=== PATIENT | female | born 1965 | race Caucasian/White ===

== ENCOUNTER 2016-12-17 09:05 | Inpatient (IN) | payer SELFPAY ==
[~2016-12-17] VITALS: Ht 157.5 cm; Wt 59.9 kg
[2016-12-17] VITALS (8 sets, daily range): BP systolic 103–155; BP diastolic 59–91; PULSE 80–98; RESP 16–22; TEMP 98.2–98.7; O2SAT 96–98
[~2016-12-17 09:05] MED LIST: LEVO50TA4 PO; LEVO75TA3 PO; PERC5TAB12 PO
--- NOTE | 2016-12-17 09:41 | PD ---
HPI Chief Complaint: Chest Pain Time Seen by Provider: 09:21 Travel History International Travel<30 days: No Contact w/Intl Traveler<30days: No Traveled to known affect area: No History of Present Illness HPI 51-year-old female complains of chest pain. Patient states that she had lateral chest wall pain and substernal chest pain for months. Patient has not seen any physician for that. Patient has history hypothyroidism and on levothyroxine. Patient denies any history hypertension, diabetes, hyperlipidemia. Patient is a nonsmoker. Patient denies family history of heart disease. Patient states the pain is aching pain bilaterally chest wall and substernal. Patient denies any pain radiation. Patient denies palpitation nausea or diaphoresis. Patient denies a coughing congestion fever chills. Patient states that the pain is not associated with exertion. Patient states it she had 2 alcoholic drinks this morning. Patient denies any illicit drug abuse. Patient states that she had a mammogram recently and was normal. PFSH Past Medical History Diminished Hearing: No Fibromyalgia: Yes (SELF DIAGNOSED) Thyroid Disease: Yes (HYPO) Influenza Vaccination: No ?: Not Menopausal: Yes Past Surgical History Surgical History: No Previous Surgery Social History Alcohol Use: Yes (WINE ) Tobacco Use: No Substance Use: No Allergies-Medications (Allergen,Severity, Reaction): Coded Allergies: penicillin G (Unverified Allergy, Unknown, 09/21/16) Reported Meds & Prescriptions Reported Meds & Active Scripts Active Levothyroxine (Levothyroxine Sodium) 75 Mcg Tab 75 Mcg PO DAILY Levothyroxine 50 mcg (Levothyroxine Sodium) 50 Mcg Tab 50 Mcg PO DAILY Percocet 5-325 mg (Oxycodone/Acetaminophen) Oxycodone 5/325 Acetaminophen Tab 1 Tab PO Q6H PRN Review of Systems General / Constitutional: No: Fever Eyes: No: Visual changes HENT: No: Headaches Cardiovascular: Positive: Chest Pain or Discomfort Respiratory: No: Shortness of Breath Gastrointestinal: No: Abdominal Pain Genitourinary: No: Dysuria Musculoskeletal: No: Pain Skin: No Rash Neurologic: No: Weakness Psychiatric: No: Depression Endocrine: No: Polydipsia Hematologic/Lymphatic: No: Easy Bruising Physical Exam Narrative GENERAL: Well-nourished, well-developed patient. SKIN: Focused skin assessment warm/dry. HEAD: Normocephalic. EYES: No scleral icterus. No injection or drainage. NECK: Supple, trachea midline. No JVD or lymphadenopathy. CARDIOVASCULAR: Regular rate and rhythm without murmurs, gallops, or rubs. RESPIRATORY: Breath sounds equal bilaterally. No accessory muscle use. GASTROINTESTINAL: Abdomen soft, non-tender, nondistended. MUSCULOSKELETAL: No cyanosis, or edema. BACK: Nontender without obvious deformity. No CVA tenderness. Neurologic exam normal. Data Data Last Documented VS Vital Signs Date Time Temp Pulse Resp B/P (MAP) Pulse Ox O2 Delivery O2 Flow Rate FiO2 12/17/16 12:42 80 16 103/59 (74) 98 Room Air 12/17/16 09:09 98.3 Orders Orders Electrocardiogram (12/17/16 09:31) Complete Blood Count With Diff (12/17/16 09:31) Comprehensive Metabolic Panel (12/17/16:31) Creatine Kinase (Cpk) (12/17/16 09:31) Troponin I (12/17/16 09:31) Prothrombin Time / Inr (Pt) (12/17/16:31) Act Partial Throm Time (Ptt) (12/17/16 09:31) Thyroid Stimulating Hormone (12/17/16 09:31) Chest, Single Ap (12/17/16 09:31) Iv Access Insert/Monitor (12/17/16 09:31) Ecg Monitoring (12/17/16 09:31) Oximetry (12/17/16 09:31) Aspirin (Aspirin) (12/17/16 09:45) Alcohol (Ethanol) (12/17/16 09:50) Thiamine Inj (Thiamine Inj) (12/17/16 13:15) Sodium Chlor 0.9% 1000 Ml Inj (Ns 1000 M (12/17/16 13:15) Labs Laboratory Tests Test 12/17/16 09:50 White Blood Count 5.0 TH/MM3 Red Blood Count 2.32 MIL/MM3 Hemoglobin 9.1 GM/DL Hematocrit 25.9 % Mean Corpuscular Volume 111.8 FL Mean Corpuscular Hemoglobin 39.3 PG Mean Corpuscular Hemoglobin Concent 35.2 % Red Cell Distribution Width 15.2 % Platelet Count 42 TH/MM3 Mean Platelet Volume 9.3 FL Neutrophils (%) (Auto) 55.9 % Lymphocytes (%) (Auto) 30.9 % Monocytes (%) (Auto) 10.2 % Eosinophils (%) (Auto) 2.0 % Basophils (%) (Auto) 1.0 % Neutrophils # (Auto) 2.8 TH/MM3 Lymphocytes # (Auto) 1.6 TH/MM3 Monocytes # (Auto) 0.5 TH/MM3 Eosinophils # (Auto) 0.1 TH/MM3 Basophils # (Auto) 0.1 TH/MM3 CBC Comment AUTO DIFF Differential Comment AUTO DIFF CONFIRMED Platelet Estimate LOW Platelet Morphology Comment CLUMPED Prothrombin Time 10.2 SEC Prothromb Time International Ratio 0.9 RATIO Activated Partial Thromboplast Time 25.2 SEC Blood Urea Nitrogen 22 MG/DL Creatinine 1.17 MG/DL Random Glucose 86 MG/DL Total Protein 7.7 GM/DL Albumin 3.3 GM/DL Calcium Level 8.4 MG/DL Alkaline Phosphatase 121 U/L Aspartate Amino Transf (AST/SGOT) 198 U/L Alanine Aminotransferase (ALT/SGPT) 52 U/L Total Bilirubin 0.3 MG/DL Sodium Level 126 MEQ/L Potassium Level 3.7 MEQ/L Chloride Level 91 MEQ/L Carbon Dioxide Level 20.0 MEQ/L Anion Gap 15 MEQ/L Estimat Glomerular Filtration Rate 48 ML/MIN Total Creatine Kinase 36 U/L Troponin I LESS THAN 0.02 NG/ML Thyroid Stimulating Hormone 3rd Gen 23.600 uIU/ML Ethyl Alcohol Level 275 MG/DL [facility] Medical Decision Making Medical Screen Exam Complete: Yes Emergency Medical Condition: Yes Interpretation(s) 9:41 AM. EKG shows sinus rhythm nonspecific ST-T wave change. 13 10 PM. Last Impressions Chest X-Ray 12/17/16 0931 Signed Impressions: Service Date/Time: Saturday, December 17, 2016 09:35 - CONCLUSION: No acute disease. Jose Yoder MD 13 11 PM. WBC 5.0. Hemoglobin 9.1 hematocrit 25.9. MCV 111.8. Platelet 42. Platelet morphology low and clumps. Sodium 126 chloride 91 bicarbonate 20 BUN 22 creatinine 1.17. GFR 48. AST 198. Cardiac enzymes are normal. TSH 23.6. Alcohol 275. Differential Diagnosis Differential diagnosis including musculoskeletal, angina, NM, PE, pneumothorax. Narrative Course 51-year-old female with chest pains for months. Aspirin 325 mg by mouth given. Normal saline solution 1 L IV bolus. Thiamine 100 mg IV. Patient will be admitted to the chest pain center. Diagnosis Primary Impression: Chest pain Qualified Codes: R07.9 - Chest pain, unspecified Additional Impressions: Hyponatremia Alcohol abuse Admitting Information Admitting Physician Requests: Observation Enoc Hernandez MD Dec 17, 2016 09:41
[2016-12-17] MEDS ORDERED: ASPIRIN 325 MG TAB PO ONE (09:45)
[2016-12-17 10:02] LABS: AUTOMATED NEUTROPHIL # 2.8 TH/MM3 (1.8-7.7); BASOPHIL # 0.1 TH/MM3 (0-0.2); EOSINOPHIL # 0.1 TH/MM3 (0-0.4); HEMATOCRIT 25.9 % (35.0-46.0); LYMPH % 30.9 % (9.0-44.0); LYMPHOCYTE # 1.6 TH/MM3 (1.0-4.8); MEAN CELL VOLUME 111.8 FL (80.0-100.0); MEAN CORPUSCULAR HEMOGLOBIN 39.3 PG (27.0-34.0); MEAN CORPUSCULAR HGB CONC 35.2 % (32.0-36.0); MONO % 10.2 % (0.0-8.0); NEUT % 55.9 % (16.0-70.0); RED BLOOD COUNT 2.32 MIL/MM3 (4.00-5.30); RED CELL DISTRIBUTION WIDTH 15.2 % (11.6-17.2)
[2016-12-17 10:05] LABS: HEMO FLAGS AUTO DIFF
--- NOTE | 2016-12-17 10:10 | RADRPT ---
EXAM DATE/TIME: 12/17/2016 09:35 [facility] COMPARISON: No previous studies available for comparison. INDICATIONS : Chest pain. MEDICAL HISTORY : Hypothyroidism. SURGICAL HISTORY : None. ENCOUNTER: Initial ACUITY: 1 day PAIN SCORE: 10/10 LOCATION: Bilateral chest FINDINGS: A single view of the chest demonstrates the lungs to be symmetrically aerated without evidence of mas s, infiltrate or effusion. The cardiomediastinal contours are unremarkable. Osseous structures are intact. CONCLUSION: No acute disease. Jose Yoder MD on December 17, 2016 at 10:08 Board Certified Radiologist. This report was verified electronically.
[2016-12-17 10:11] LABS: APTT (PATIENT) 25.2 SEC (24.3-30.1); INTERNATIONAL NORMALIZED RATIO 0.9 RATIO; PROTHROMBIN TIME - PATIENT 10.2 SEC (9.8-11.6)
[2016-12-17 10:22] LABS: ALT (GPT) 52 U/L (10-53); ANION GAP 15 MEQ/L (5-15); AST (GOT) 198 U/L (15-37); BLOOD UREA NITROGEN 22 MG/DL (7-18); CHLORIDE 91 MEQ/L (98-107); GLOMERULAR FILTRATION RATE 48 ML/MIN (>89); POTASSIUM 3.7 MEQ/L (3.5-5.1); SODIUM (NA) 126 MEQ/L (136-145)
[2016-12-17 10:32] LABS: ALKALINE PHOSPHATASE 121 U/L (45-117); TOTAL BILIRUBIN ADULT 0.3 MG/DL (0.2-1.0)
[2016-12-17 10:35] LABS: ALCOHOL 275 MG/DL (0-5); CREATINE KINASE 36 U/L (26-192)
[2016-12-17 11:10] LABS: PLATELET COUNT 42 TH/MM3 (150-450)
[2016-12-17 11:11] LABS: PLATELET ESTIMATE SMEAR LOW (NORMAL); PLATELET MORPHOLOGY CLUMPED (NORMAL); SCAN/DIFF AUTO DIFF CONFIRMED
[2016-12-17] MEDS ORDERED: THIAMINE INJ 100 MG in SODIUM CHLORIDE 0.9% INJ 100 ML IV ONE (13:15)
[2016-12-17] MEDS ORDERED: SODIUM CHLOR 0.9% 1000 ML INJ 1,000 ML IV ONE (13:15)
[2016-12-17] MEDS ORDERED: ONDANSETRON HCL 4 MG/2 ML VIAL IV PUSH PRN (13:45)
[2016-12-17] MEDS ORDERED: SODIUM CHLORIDE 0.9% FLUSH 10 ML FLUSH IV FLUSH PRN (13:45)
[2016-12-17] MEDS ORDERED: LORazepam 2 MG TAB PO PRN (14:45)
[2016-12-17] MEDS ORDERED: FLUMAZENIL 0.5 MG/5 ML VIAL IV PUSH PRN (14:45)
[2016-12-17] MEDS ORDERED: LORazepam 2 MG/ML VIAL IV PUSH PRN ×4 (14:45)
[2016-12-17] MEDS ORDERED: LORazepam 1 MG TAB PO PRN (14:45)
--- NOTE | 2016-12-17 15:00 | HHI.HP ---
HPI Primary Care Physician No Primary Care Physician Chief Complaint Chest pain History of Present Illness This is a 51-year-old female that presents to ED via private vehicle with a complaint of months of intermittent right-sided chest discomfort that she describes as tightness. Nothing in particular brings it on. Has a hard time describing how long it lasts. No associated shortness breath, nausea, or diaphoresis. Denies fevers chills. Denies recent illness. Denies history of CAD. Has been out of thyroid medication for months. Patient was worried that the discomfort was related to breast cancer and subsequently had a ultrasound of her breasts 12/02/16 and states that the results were normal. Review of Systems General: Patient denies fevers, chills recent, and recent travel HEENT: Patient denies headache, sore throat, difficulty swallowing. Cardiovascular: Has the chest discomfort as mentioned above. Denies sensation of heart beating rapidly or irregularly. No syncope. Denies diaphoresis. Respiratory: Denies shortness of breath or inspirational chest discomfort. Denies coughing wheezing or hemoptysis. GI: Patient denies nausea, vomiting, diarrhea, abdominal pain, bloody stools. Musculoskeletal: Patient denies joint pain or edema. Denies calf pain or edema. Neurovascular: Patient denies numbness, tingling, weakness in extremities. Denies headache. Endocrine: Denies polyuria and polydipsia. Hematologic: Denies easy bruising. Skin: Denies rash or itching. Past Family Social History Allergies: Coded Allergies: penicillin G (Unverified Allergy, Unknown, 09/21/16) Past Medical History Alcoholism. Hypothyroidism. States she has had seizures with alcohol withdrawal. Denies hypertension, hyperlipidemia, diabetes, and CAD. Past Surgical History Denies. Reported Medications Reported Meds & Active Scripts Active Levothyroxine (Levothyroxine Sodium) 75 Mcg Tab 75 Mcg PO DAILY Active Ordered Medications Current Medications Medications (Trade) Dose Ordered Sig/Inderjit Route Start Time Stop Time Status Last Admin (NS Flush) 2 ml UNSCH PRN IV FLUSH 12/17/16 13:45 (NS Flush) 2 ml BID IV FLUSH 12/17/16 21:00 (Zofran Inj) 4 mg Q6H PRN IV PUSH 12/17/16 13:45 (Romazicon Inj) 0.2 mg Q1M PRN IV PUSH 12/17/16 14:45 (Ativan) 1 mg Q4H PRN PO 12/17/16 14:45 (Ativan Inj) 1 mg Q4H PRN IV PUSH 12/17/16 14:45 (Ativan) 2 mg Q2H PRN PO 12/17/16 14:45 (Ativan Inj) 2 mg Q2H PRN IV PUSH 12/17/16 14:45 (Ativan Inj) 2 mg Q1H PRN IV PUSH 12/17/16 14:45 (Ativan Inj) 2 mg Q15M PRN IV PUSH 12/17/16 14:45 (Synthroid) 75 mcg DAILY PO 12/17/16 14:45 Family History Denies family history of CAD. Social History Patient drinks on average 1 L wine per day. Denies illicit drugs. Denies tobacco abuse. Physical Exam Vital Signs Vital Signs Date Time Temp Pulse Resp B/P (MAP) Pulse Ox O2 Delivery O2 Flow Rate FiO2 12/17/16 12:42 80 16 103/59 (74) 98 Room Air 12/17/16 11:11 81 22 108/69 (82) 98 Room Air 12/17/16 09:19 Room Air 12/17/16 09:09 98.3 93 18 155/91 (112) 97 Physical Exam GENERAL: This is a well-nourished, well-developed patient, in no apparent distress. Patient speaks in clear complete sentences. Patient is pleasant. HEENT: Head is atraumatic and normocephalic. Neck is supple without lymphadenopathy and trachea is midline. No JVD or carotid bruits. CARDIOVASCULAR: Regular rate and rhythm without murmurs, gallops, or rubs. RESPIRATORY: Clear to auscultation. Breath sounds equal bilaterally. No wheezes , rales, or rhonchi. Chest wall is tender on the right side. No use of accessory muscles. GASTROINTESTINAL: Abdomen is nontender, nondistended. Abdomen soft. No obvious pulsatile mass or bruit. No CVA tenderness. Strong femoral pulses bilaterally. Normal bowel sounds in all quadrants. MUSCULOSKELETAL: Patient is moving upper and lower extremities freely. No calf tenderness or edema, no Homans sign. Strong pulses in upper and lower extremities. NEUROLOGICAL: Patient is alert and oriented. Cranial nerves 2-12 are grossly intact. No focal deficits and speech is clear. SKIN: No rash and turgor is normal. Laboratory Laboratory Tests Test 12/17/16 09:50 White Blood Count 5.0 Red Blood Count 2.32 Hemoglobin 9.1 Hematocrit 25.9 Mean Corpuscular Volume 111.8 Mean Corpuscular Hemoglobin 39.3 Mean Corpuscular Hemoglobin Concent 35.2 Red Cell Distribution Width 15.2 Platelet Count 42 Mean Platelet Volume 9.3 Neutrophils (%) (Auto) 55.9 Lymphocytes (%) (Auto) 30.9 Monocytes (%) (Auto) 10.2 Eosinophils (%) (Auto) 2.0 Basophils (%) (Auto) 1.0 Neutrophils # (Auto) 2.8 Lymphocytes # (Auto) 1.6 Monocytes # (Auto) 0.5 Eosinophils # (Auto) 0.1 Basophils # (Auto) 0.1 CBC Comment AUTO DIFF Differential Comment AUTO DIFF CONFIRMED Platelet Estimate LOW Platelet Morphology Comment CLUMPED Prothrombin Time 10.2 Prothromb Time International Ratio 0.9 Activated Partial Thromboplast Time 25.2 Blood Urea Nitrogen 22 Creatinine 1.17 Random Glucose 86 Total Protein 7.7 Albumin 3.3 Calcium Level 8.4 Alkaline Phosphatase 121 Aspartate Amino Transf (AST/SGOT) 198 Alanine Aminotransferase (ALT/SGPT) 52 Total Bilirubin 0.3 Sodium Level 126 Potassium Level 3.7 Chloride Level 91 Carbon Dioxide Level 20.0 Anion Gap 15 Estimat Glomerular Filtration Rate 48 Total Creatine Kinase 36 Troponin I LESS THAN 0.02 Thyroid Stimulating Hormone 3rd Gen 23.600 Ethyl Alcohol Level 275 Result Diagram: 12/17/1650 12/17/16 0950 Imaging Last 48 hours Impressions Chest X-Ray 12/17/16 0931 Signed Impressions: Service Date/Time: Saturday, December 17, 2016 09:35 - CONCLUSION: No acute disease. Jose Yoder MD Course EKGs: Initial EKG has sinus rhythm without significant ST segment depressions or elevations. Caprini VTE Risk Assessment Caprini VTE Risk Assessment: No/Low Risk (score <= 1) Caprini Risk Assessment Model Point Value = 1 Point Value = 2 Point Value = 3 Point Value = 5 Age 41-60 Minor surgery BMI > 25 kg/m2 Swollen legs Varicose veins or History of unexplained or recurrent spontaneous Oral contraceptives or hormone replacement Sepsis (< 1 month) Serious lung disease, including pneumonia (< 1 month) Abnormal pulmonary function Acute myocardial infarction Congestive heart failure (< 1 month) History of inflammatory bowel disease Medical patient at bed rest Age 61-74 Arthroscopic surgery Major open surgery (> 45 min) Laparoscopic surgery (> 45 min) Malignancy Confined to bed (> 72 hours) Immobilizing plaster cast Central venous access Age >= 75 History of VTE Family history of VTE Factor V Leiden Prothrombin [id number] Lupus anticoagulant Anticardiolipin antibodies Elevated serum homocysteine Heparin-induced thrombocytopenia Other congenital or acquired thrombophilia Stroke (< 1 month) Elective arthroplasty Hip, pelvis, or leg fracture Acute spinal cord injury (< 1 month) Prophylaxis Regimen Total Risk Factor Score Risk Level Prophylaxis Regimen 0-1 Low Early ambulation 2 Moderate Order ONE of the following: *Sequential Compression Device (SCD) *Heparin 5000 units SQ BID 3-4 Higher Order ONE of the following medications: *Heparin 5000 units SQ TID *Enoxaparin/Lovenox 40 mg SQ daily (WT < 150 kg, CrCl > 30 mL/min) *Enoxaparin/Lovenox 30 mg SQ daily (WT < 150 kg, CrCl > 10-29 mL/min) *Enoxaparin/Lovenox 30 mg SQ BID (WT < 150 kg, CrCl > 30 mL/min) AND/OR *Sequential Compression Device (SCD) 5 or more Highest Order ONE of the following medications: *Heparin 5000 units SQ TID (Preferred with Epidurals) *Enoxaparin/Lovenox 40 mg SQ daily (WT < 150 kg, CrCl > 30 mL/min) *Enoxaparin/Lovenox 30 mg SQ daily (WT < 150 kg, CrCl > 10-29 mL/min) *Enoxaparin/Lovenox 30 mg SQ BID (WT < 150 kg, CrCl > 30 mL/min) AND *Sequential Compression Device (SCD) Assessment and Plan Assessment and Plan * Chest pain: Patient will have serial cardiac enzymes and EKGs for ruling out purposes. Her symptoms appear to be atypical. She has been seen by Dr. Bay of cardiology in the chest pain center and will likely undergo a Lexiscan myocardial perfusion stress test in the morning if she rules out. She'll be discharged home if her stress test is nonischemic. * Alcoholism: Patient has been counseled on importance of reducing alcohol intake. We will have CIWA precautions. * Hypothyroidism: Patient states she has not had medication in months. We will restart her thyroid medication. * Hyponatremia: Patient was given medication in the ED. * Thrombocytopenia: We'll repeat a CBC. * Anemia: We'll repeat CBC. Patient states she has history of anemia but does not know the type. * Elevated LFTs: Patient needs to decrease alcohol intake and follow-up with PCP. Patient is stable at this time. She is agreeable to this plan. Wily Melchor Dec 17, 2016 15:00
[2016-12-17] MEDS: LEVOTHYROXINE SODIUM 75 MCG TAB PO SCH (15:55)
[2016-12-17 16:26] LABS: CREATINE KINASE 26 U/L (26-192)
[2016-12-17] MEDS: PANTOPRAZOLE SOD 40 MG DELAYED RELEASE TAB PO SCH (17:08)
[2016-12-17 20:30] LABS: CREATINE KINASE 27 U/L (26-192)
[2016-12-17] MEDS: SODIUM CHLORIDE 0.9% FLUSH 10 ML FLUSH IV FLUSH SCH (21:48)
[2016-12-18] VITALS (14 sets, daily range): BP systolic 99–132; BP diastolic 60–74; PULSE 71–97; RESP 15–20; TEMP 98–99; O2SAT 94–100
[2016-12-18 07:06] LABS: BICARBONATE 22.2 MEQ/L (21.0-32.0); POTASSIUM 4.6 MEQ/L (3.5-5.1)
[2016-12-18 07:57] LABS: AUTOMATED NEUTROPHIL # 2.9 TH/MM3 (1.8-7.7); BASOPHIL # 0.1 TH/MM3 (0-0.2); BASOPHIL % 1.2 % (0.0-2.0); EOSINOPHIL # 0.1 TH/MM3 (0-0.4); EOSINOPHIL % 1.5 % (0.0-4.0); HEMATOCRIT 23.7 % (35.0-46.0); LYMPH % 23.7 % (9.0-44.0); LYMPHOCYTE # 1.1 TH/MM3 (1.0-4.8); MEAN CELL VOLUME 111.9 FL (80.0-100.0); MEAN CORPUSCULAR HGB CONC 33.9 % (32.0-36.0); MONO % 9.2 % (0.0-8.0); NEUT % 64.4 % (16.0-70.0); RED BLOOD COUNT 2.12 MIL/MM3 (4.00-5.30); RED CELL DISTRIBUTION WIDTH 15.1 % (11.6-17.2); WHITE BLOOD COUNT 4.5 TH/MM3 (4.0-11.0)
[2016-12-18 07:58] LABS: HEMO FLAGS AUTO DIFF
[2016-12-18 07:59] LABS: PLATELET COUNT 47 TH/MM3 (150-450)
[2016-12-18 08:50] LABS: PLATELET ESTIMATE SMEAR LOW (NORMAL); PLATELET MORPHOLOGY CLUMPED (NORMAL); SCAN/DIFF AUTO DIFF CONFIRMED
[2016-12-18] MEDS ORDERED: REGADENOSON INJ 0.4 MG/5 ML SYR ONE (10:53)
--- NOTE | 2016-12-18 11:09 | EKG ---
Date Performed: 12/17/2016 Time Performed: 17:58:42 PTAGE: 51 years EKG: Sinus rhythm PATTERN CONSISTENT WITH PULMONARY DISEASE LEFT ANTERIOR FASCICULAR BLOCK MINIMAL ST DEPRESSION ABNOR MAL ECG PREVIOUS TRACING : 12/17/2016 16.02 Since previous tracing, no significant change noted DOCTOR: Matthew Bay Interpretating Date/Time 12/18/2016 11:07:25
--- NOTE | 2016-12-18 11:09 | EKG ---
Date Performed: 12/17/2016 Time Performed: 16:02:48 PTAGE: 51 years EKG: Sinus rhythm MARKED LEFT AXIS DEVIATION LOW QRS VOLTAGE IN PRECORDIAL LEADS ABNORMAL ECG PREVIOUS TRACING : 12/17/2016 09.25 Since previous tracing, no significant change noted DOCTOR: Matthew Bay Interpretating Date/Time 12/18/2016 11:07:57
--- NOTE | 2016-12-18 11:12 | EKG ---
Date Performed: 12/17/2016 Time Performed: 09:25:52 PTAGE: 51 years EKG: Sinus rhythm PATTERN CONSISTENT WITH PULMONARY DISEASE LEFT ANTERIOR FASCICULAR BLOCK ABNORMAL ECG PREVIOUS TRACING : 12/17/2016 09.25 NO PREVIOUS TRACING is available for comparison DOCTOR: Matthew Bay Interpretating Date/Time 12/18/2016 11:10:47
[2016-12-18] MEDS: PANTOPRAZOLE SOD 40 MG DELAYED RELEASE TAB PO SCH ×2 (12:16→15:45)
[2016-12-18] MEDS: SODIUM CHLORIDE 0.9% FLUSH 10 ML FLUSH IV FLUSH SCH ×3 (12:16→21:32)
[2016-12-18] MEDS: LEVOTHYROXINE SODIUM 75 MCG TAB PO SCH (12:17)
--- NOTE | 2016-12-18 12:19 | RADRPT ---
EXAM DATE/TIME: 12/18/2016 10:44 [facility] COMPARISON: No previous studies available for comparison. INDICATIONS : Right sided chest pain for two months. Angina. DOSE: 25.6 mCi Tc99m Myoview at stress. 8.7 mCi Tc99m Myoview at rest. 0.4 mg Lexiscan STRESS SYMPTOMS: Short of breath and lightheaded. EJECTION FRACTION: > 70% MEDICAL HISTORY : Hypothyroidism. SURGICAL HISTORY : None. ENCOUNTER: Initial ACUITY: 2 months PAIN SCALE: 5/10 LOCATION: Right chest TECHNIQUE: The patient underwent pharmacologic stress with infusion of prescribed dose. Continuous ECG tracing was monitored during stress. Gated SPECT imaging was performed after stress and conventional SPECT i maging was performed at rest. The examination was performed on a SPECT/CT scanner, both attenuation and non-corrected datasets were reviewed. FINDINGS: DISTRIBUTION: The maximum perfused segment at stress appear to be equally distributed between septal, inferolateral and anterolateral fischer. Image sets were normalized the anterolateral segment. PERFUSION STUDY: The pattern of perfusion at stress is within normal limits. GATED STUDY: There is intact wall motion and thickening without hypokinetic or dyskinetic segments. CONCLUSION: 1. No scintigraphic evidence of infarct or ischemia. 2. Excellent wall motion throughout the estimated ejection fraction of greater than 70%. RISK CATEGORY: Low (<1% Annual Mortality Rate) Daniel Gregg MD on December 18, 2016 at 12:16 Board Certified Radiologist. This report was verified electronically.
--- NOTE | 2016-12-18 13:30 | PD.CARD.PN ---
Subjective Subjective Remarks No complaints. Denies chest pain. Denies abdominal pain. Denies blood in stool. Objective Medications Current Medications Medications (Trade) Dose Ordered Sig/Inderjit Route Start Time Stop Time Status Last Admin (NS Flush) 2 ml UNSCH PRN IV FLUSH 12/17/16 13:45 (NS Flush) 2 ml BID IV FLUSH 12/17/16 21:00 12/18/16 12:16 (Zofran Inj) 4 mg Q6H PRN IV PUSH 12/17/16 13:45 12/18/16 12:16 (Romazicon Inj) 0.2 mg Q1M PRN IV PUSH 12/17/16 14:45 (Ativan) 1 mg Q4H PRN PO 12/17/16 14:45 (Ativan Inj) 1 mg Q4H PRN IV PUSH 12/17/16 14:45 (Ativan) 2 mg Q2H PRN PO 12/17/16 14:45 (Ativan Inj) 2 mg Q2H PRN IV PUSH 12/17/16 14:45 (Ativan Inj) 2 mg Q1H PRN IV PUSH 12/17/16 14:45 (Ativan Inj) 2 mg Q15M PRN IV PUSH 12/17/16 14:45 (Synthroid) 75 mcg DAILY PO 12/17/16 14:45 12/18/16 12:17 (Protonix) 40 mg DAILY PO 12/17/16 16:45 12/18/16 12:16 Vital Signs / I&O Vital Signs Date Time Temp Pulse Resp B/P (MAP) Pulse Ox O2 Delivery O2 Flow Rate FiO2 12/18/16 12:43 98.2 97 16 113/64 (80) 98 12/18/16 08:51 91 12/18/16 08:50 94 21 12/18/16 08:41 98.6 94 15 132/74 (93) 94 12/18/16 04:11 99.0 95 16 119/67 (84) 100 12/18/16 04:00 84 12/18/16 01:25 93 12/18/16 00:24 99.0 97 16 108/63 (78) 98 12/17/16 20:22 98.7 94 18 121/69 (86) 97 12/17/16 20:08 96 12/17/16 20:00 98 12/17/16 18:25 89 12/17/16 18:05 98.2 84 18 112/59 (76) 96 12/17/16 16:05 I/O 12/17/16 12/17/16 12/17/16 12/18/16 12/18/16 12/18/16 07:00 15:00 23:00 07:00 15:00 23:00 Intake Total 1101 ml Balance 1101 ml Intake IV Total 1101 ml # Voids 1 Physical Exam Lungs: CTA Cardiac:RRR,. No murmur gallop or rub. GI: Nontender. Normal bowel sounds. Hemoglobin decreased from 9.1 TO 8.1. Coffee one or cold rolling coordinator at the bedside, rectal exam obtained and stool is Hemoccult negative. Laboratory Laboratory Tests Test 12/17/16 15:00 12/17/16 17:50 12/18/16 05:40 12/18/16 07:30 Total Creatine Kinase 26 U/L 27 U/L Troponin I LESS THAN 0.02 NG/ML LESS THAN 0.02 NG/ML Blood Urea Nitrogen 20 MG/DL Creatinine 1.14 MG/DL Random Glucose 76 MG/DL Calcium Level 8.5 MG/DL Sodium Level 133 MEQ/L Potassium Level 4.6 MEQ/L Chloride Level 99 MEQ/L Carbon Dioxide Level 22.2 MEQ/L Anion Gap 12 MEQ/L Estimat Glomerular Filtration Rate 50 ML/MIN White Blood Count 4.5 TH/MM3 Red Blood Count 2.12 MIL/MM3 Hemoglobin 8.1 GM/DL Hematocrit 23.7 % Mean Corpuscular Volume 111.9 FL Mean Corpuscular Hemoglobin 38.0 PG Mean Corpuscular Hemoglobin Concent 33.9 % Red Cell Distribution Width 15.1 % Platelet Count 47 TH/MM3 Mean Platelet Volume 9.6 FL Neutrophils (%) (Auto) 64.4 % Lymphocytes (%) (Auto) 23.7 % Monocytes (%) (Auto) 9.2 % Eosinophils (%) (Auto) 1.5 % Basophils (%) (Auto) 1.2 % Neutrophils # (Auto) 2.9 TH/MM3 Lymphocytes # (Auto) 1.1 TH/MM3 Monocytes # (Auto) 0.4 TH/MM3 Eosinophils # (Auto) 0.1 TH/MM3 Basophils # (Auto) 0.1 TH/MM3 CBC Comment AUTO DIFF Differential Comment AUTO DIFF CONFIRMED Platelet Estimate LOW Platelet Morphology Comment CLUMPED Imaging Last 24 hours Impressions Myocardial Perfusion Scan Nuc Med 12/18/16 0000 Signed Impressions: Service Date/Time: Sunday, December 18, 2016 10:44 - CONCLUSION: 1. No scintigraphic evidence of infarct or ischemia. 2. Excellent wall motion throughout the estimated ejection fraction of greater than 70%%. RISK CATEGORY : Low (<1%% Annual Mortality Rate) Daniel Gregg MD Assessment and Plan Assessment and Plan * Chest pain: Patient will have serial cardiac enzymes and EKGs for ruling out purposes. Her symptoms appear to be atypical. She has had Lexiscan and is nonischemic. * Alcoholism: Patient has been counseled on importance of reducing alcohol intake. We will have CIWA precautions. * Hypothyroidism: Patient states she has not had medication in months. We will restart her thyroid medication. * Hyponatremia: Sodium has improved.. * Thrombocytopenia: Repeat CBC has platelets mildly increased 47,000 from 42, 000. * Anemia: Repeat CBC in the morning has a hemoglobin now at 8.1. Stools checked and it is Hemoccult negative. We'll repeat another CBC this afternoon, likely a results are related to dilutional effect. She was given IV hydration yesterday. * Elevated LFTs: Patient needs to decrease alcohol intake and follow-up with PCP. * Pending results of CBC, patient will likely be discharged home with instructions to follow-up with PCP. She will be given a prescription of Protonix and levothyroxine. Patient is stable at this time. She is agreeable to this plan. Wily Melchor Dec 18, 2016 13:30
--- NOTE | 2016-12-18 13:43 | TR ---
Date Performed: 12/18/2016 Time Performed: 11:03:03 DOCTOR: Matthew Bay DRUG LIST: CLINICAL HISTORY: ANGINA REASON FOR TEST: Angina REASON FOR ENDING: OBSERVATION: CONCLUSION: Lexiscan stress test was performed under standard four minute protocol. Radionuclid e was injected one minute prior to ending the test. No electrocardiographic abormalities were present to suggest ischemia. Nuclear imaging and interpretation are pending. COMMENTS:
[2016-12-18 14:30] LABS: AUTOMATED NEUTROPHIL # 3.3 TH/MM3 (1.8-7.7); BASOPHIL % 0.8 % (0.0-2.0); EOSINOPHIL % 0.7 % (0.0-4.0); HEMATOCRIT 21.1 % (35.0-46.0); LYMPH % 13.8 % (9.0-44.0); LYMPHOCYTE # 0.6 TH/MM3 (1.0-4.8); MEAN CELL VOLUME 112.9 FL (80.0-100.0); MEAN CORPUSCULAR HEMOGLOBIN 39.8 PG (27.0-34.0); MEAN CORPUSCULAR HGB CONC 35.3 % (32.0-36.0); MONO % 9.1 % (0.0-8.0); NEUT % 75.6 % (16.0-70.0); RED BLOOD COUNT 1.87 MIL/MM3 (4.00-5.30); RED CELL DISTRIBUTION WIDTH 15.4 % (11.6-17.2); WHITE BLOOD COUNT 4.4 TH/MM3 (4.0-11.0)
[2016-12-18 14:31] LABS: HEMO FLAGS AUTO DIFF; PLATELET COUNT 56 TH/MM3 (150-450)
[2016-12-18 15:17] LABS: BANDS 7 % (0-6); EOSINOPHILS 1 % (0-4); NEUTROPHIL # MANUAL DIFF 3.6 TH/MM3 (1.8-7.7); PLATELET ESTIMATE SMEAR LOW (NORMAL); PLATELET MORPHOLOGY CLUMPED (NORMAL); POLYS (SEG NEUTROPHILS) 75 % (16-70); SCAN/DIFF FINAL DIFF MANUAL; WBC DIFF SAMPLE 100
--- NOTE | 2016-12-18 15:41 | HHI.PR ---
Subjective Remarks This is a 51-year-old female that presents to ED via private vehicle with a complaint of months of intermittent right-sided chest discomfort that she describes as tightness. Nothing in particular brings it on. Has a hard time describing how long it lasts. No associated shortness breath, nausea, or diaphoresis. Denies fevers chills. Denies recent illness. Denies history of CAD. Has been out of thyroid medication for months. Patient was worried that the discomfort was related to breast cancer and subsequently had a ultrasound of her breasts 12/02/16 and states that the results were normal. 11-12 HAD STRESS TEST IS NOTED TO BE NONISCHEMIC AND NEGATIVE HAS LOWER HEMOGLOBIN- SUSPECT DILUTIONAL WILL GET ANEMIA WORKUP WILL CONSULT HEMATOLOGY START ON IRON AND TRANSFUSE 2 UNITS TODAY DW RN AND PT PATIENT TRANSFERRED TO OUR SERVICE DRINKS A BOX OF 3LITERS OF WINE EVERY 3 DAY- SO 1 LITER OF WINE DAILY Objective Vitals Vital Signs Date Time Temp Pulse Resp B/P (MAP) Pulse Ox O2 Delivery O2 Flow Rate FiO2 12/18/16 12:43 98.2 97 16 113/64 (80) 98 12/18/16 08:51 91 12/18/16 08:50 94 21 12/18/16 08:41 98.6 94 15 132/74 (93) 94 12/18/16 04:11 99.0 95 16 119/67 (84) 100 12/18/16 04:00 84 12/18/16 01:25 93 12/18/16 00:24 99.0 97 16 108/63 (78) 98 12/17/16 20:22 98.7 94 18 121/69 (86) 97 12/17/16 20:08 96 12/17/16 20:00 98 12/17/16 18:25 89 12/17/16 18:05 98.2 84 18 112/59 (76) 96 12/17/16 16:05 I/O 12/17/16 12/17/16 12/17/16 12/18/16 12/18/16 12/18/16 07:00 15:00 23:00 07:00 15:00 23:00 Intake Total 1101 ml Balance 1101 ml Intake IV Total 1101 ml # Voids 1 Result Diagram: 12/18/16 1400 12/18/16 0540 Other Results Laboratory Tests Test 12/17/16 09:50 12/17/16 15:00 12/17/16 17:50 12/18/16 05:40 White Blood Count 5.0 TH/MM3 Red Blood Count 2.32 MIL/MM3 Hemoglobin 9.1 GM/DL Hematocrit 25.9 % Mean Corpuscular Volume 111.8 FL Mean Corpuscular Hemoglobin 39.3 PG Mean Corpuscular Hemoglobin Concent 35.2 % Red Cell Distribution Width 15.2 % Platelet Count 42 TH/MM3 Mean Platelet Volume 9.3 FL Neutrophils (%) (Auto) 55.9 % Lymphocytes (%) (Auto) 30.9 % Monocytes (%) (Auto) 10.2 % Eosinophils (%) (Auto) 2.0 % Basophils (%) (Auto) 1.0 % Neutrophils # (Auto) 2.8 TH/MM3 Lymphocytes # (Auto) 1.6 TH/MM3 Monocytes # (Auto) 0.5 TH/MM3 Eosinophils # (Auto) 0.1 TH/MM3 Basophils # (Auto) 0.1 TH/MM3 CBC Comment AUTO DIFF Differential Comment AUTO DIFF CONFIRMED Platelet Estimate LOW Platelet Morphology Comment CLUMPED Prothrombin Time 10.2 SEC Prothromb Time International Ratio 0.9 RATIO Activated Partial Thromboplast Time 25.2 SEC Blood Urea Nitrogen 22 MG/DL 20 MG/DL Creatinine 1.17 MG/DL 1.14 MG/DL Random Glucose 86 MG/DL 76 MG/DL Total Protein 7.7 GM/DL Albumin 3.3 GM/DL Calcium Level 8.4 MG/DL 8.5 MG/DL Alkaline Phosphatase 121 U/L Aspartate Amino Transf (AST/SGOT) 198 U/L Alanine Aminotransferase (ALT/SGPT) 52 U/L Total Bilirubin 0.3 MG/DL Sodium Level 126 MEQ/L 133 MEQ/L Potassium Level 3.7 MEQ/L 4.6 MEQ/L Chloride Level 91 MEQ/L 99 MEQ/L Carbon Dioxide Level 20.0 MEQ/L 22.2 MEQ/L Anion Gap 15 MEQ/L 12 MEQ/L Estimat Glomerular Filtration Rate 48 ML/MIN 50 ML/MIN Total Creatine Kinase 36 U/L 26 U/L 27 U/L Troponin I LESS THAN 0.02 NG/ML LESS THAN 0.02 NG/ML LESS THAN 0.02 NG/ML Thyroid Stimulating Hormone 3rd Gen 23.600 uIU/ML Ethyl Alcohol Level 275 MG/DL Test 12/18/16 07:30 12/18/16 14:00 White Blood Count 4.5 TH/MM3 4.4 TH/MM3 Red Blood Count 2.12 MIL/MM3 1.87 MIL/MM3 Hemoglobin 8.1 GM/DL 7.4 GM/DL Hematocrit 23.7 % 21.1 % Mean Corpuscular Volume 111.9 FL 112.9 FL Mean Corpuscular Hemoglobin 38.0 PG 39.8 PG Mean Corpuscular Hemoglobin Concent 33.9 % 35.3 % Red Cell Distribution Width 15.1 % 15.4 % Platelet Count 47 TH/MM3 56 TH/MM3 Mean Platelet Volume 9.6 FL 10.0 FL Neutrophils (%) (Auto) 64.4 % 75.6 % Lymphocytes (%) (Auto) 23.7 % 13.8 % Monocytes (%) (Auto) 9.2 % 9.1 % Eosinophils (%) (Auto) 1.5 % 0.7 % Basophils (%) (Auto) 1.2 % 0.8 % Neutrophils # (Auto) 2.9 TH/MM3 3.3 TH/MM3 Lymphocytes # (Auto) 1.1 TH/MM3 0.6 TH/MM3 Monocytes # (Auto) 0.4 TH/MM3 0.4 TH/MM3 Eosinophils # (Auto) 0.1 TH/MM3 0.0 TH/MM3 Basophils # (Auto) 0.1 TH/MM3 0.0 TH/MM3 CBC Comment AUTO DIFF AUTO DIFF Differential Comment AUTO DIFF CONFIRMED FINAL DIFF MANUAL Platelet Estimate LOW LOW Platelet Morphology Comment CLUMPED CLUMPED Differential Total Cells Counted 100 Neutrophils % (Manual) 75 % Band Neutrophils % 7 % Lymphocytes % 16 % Monocytes % 1 % Eosinophils % 1 % Neutrophils # (Manual) 3.6 TH/MM3 Imaging Last Impressions Myocardial Perfusion Scan Nuc Med 12/18/16 0000 Signed Impressions: Service Date/Time: Sunday, December 18, 2016 10:44 - CONCLUSION: 1. No scintigraphic evidence of infarct or ischemia. 2. Excellent wall motion throughout the estimated ejection fraction of greater than 70%%. RISK CATEGORY : Low (<1%% Annual Mortality Rate) Daniel Gregg MD Chest X-Ray 12/17/16 0931 Signed Impressions: Service Date/Time: Saturday, December 17, 2016 09:35 - CONCLUSION: No acute disease. Jose Yoder MD Objective Remarks GENERAL: AWAKE ALERT AND ORIENTED TALKATIVE AND COOPERATIVE SKIN: Warm and dry. HEAD: Atraumatic. Normocephalic. EYES: Pupils equal and round. No scleral icterus. No injection or drainage. EOMI ENT: No nasal bleeding or discharge. Mucous membranes pink and moist. TONGUE MIDLINE NECK: Trachea midline. No JVD. SUPPLE CARDIOVASCULAR: Regular rate and rhythm. S1, S2 NO S3 OR S4 NO HEAVE OR THRILL RESPIRATORY: No accessory muscle use. Clear to auscultation. Breath sounds equal bilaterally. GASTROINTESTINAL: Abdomen soft, non-tender, nondistended. Hepatic and splenic margins not palpable. MUSCULOSKELETAL: Extremities without clubbing, cyanosis, or edema. No obvious deformities. NEUROLOGICAL: Awake and alert. No obvious cranial nerve deficits. Motor grossly within normal limits. Five out of 5 muscle strength in the arms and legs. Normal speech. PSYCHIATRIC: INAppropriate mood and affect; insight and judgment ABnormal. APPEARS DEPRESSED- DRINKS HEAVY DAILY Medications and IVs Current Medications Aspirin (Aspirin) 325 mg ONCE ONCE PO Last administered on 12/17/16 09:55; Start 12/17/16 at 09:45; Stop 12/17/16 at 09:46; Status DC Thiamine HCl 100 mg/Sodium Chloride 101 ml @ 101 mls/hr ONCE ONCE IV Last administered on 12/17/16 13:33; Start 12/17/16 at 13:15; Stop 12/17/16 at 14 :14; Status DC Sodium Chloride 1,000 ml @ 999 mls/hr BOLUS ONCE IV Last administered on 13:33; Start 12/17/16 at 13:15; Stop 12/17/16 at 14:15; Status DC Sodium Chloride (NS Flush) 2 ml UNSCH PRN IV FLUSH FLUSH AFTER USING IV ACCESS ; Start 12/17/16 at 13:45 Sodium Chloride (NS Flush) 2 ml BID IV FLUSH Last administered on 12/18/16 12 :16; Start 12/17/16 at 21:00 Ondansetron HCl (Zofran Inj) 4 mg Q6H PRN IV PUSH NAUSEA Last administered on 12/18/16 12:16; Start 12/17/16 at 13:45 Flumazenil (Romazicon Inj) 0.2 mg Q1M PRN IV PUSH SEE LABEL COMMENTS; Start at 14:45 Lorazepam (Ativan) 1 mg Q4H PRN PO CIWA 8 - 10; Start 12/17/16 at 14:45 Lorazepam (Ativan Inj) 1 mg Q4H PRN IV PUSH CIWA 8 - 10; Start 12/17/16 at 14: 45 Lorazepam (Ativan) 2 mg Q2H PRN PO CIWA 11-14; Start 12/17/16 at 14:45 Lorazepam (Ativan Inj) 2 mg Q2H PRN IV PUSH CIWA 11-14; Start 12/17/16 at 14: 45 Lorazepam (Ativan Inj) 2 mg Q1H PRN IV PUSH CIWA 15-20; Start 12/17/16 at 14: 45 Lorazepam (Ativan Inj) 2 mg Q15M PRN IV PUSH CIWA > 20; Start 12/17/16 at 14: 45 Levothyroxine Sodium (Synthroid) 75 mcg DAILY PO Last administered on 12:17; Start 12/17/16 at 14:45 Pantoprazole Sodium (Protonix) 40 mg DAILY PO Last administered on 12/18/16 12:16; Start 12/17/16 at 16:45 Regadenoson (Lexiscan Inj) 0.4 mg STK-MED ONCE .ROUTE Last administered on 10:53; Start 12/18/16 at 10:53; Stop 12/18/16 at 10:54; Status DC A/P Problem List: (1) Anemia ICD Code: D64.9 - Anemia, unspecified (2) Hypothyroidism ICD Code: E03.9 - Hypothyroidism, unspecified (3) Depression ICD Code: F32.9 - Major depressive disorder, single episode, unspecified (4) Noncompliance ICD Code: Z91.19 - Patient's noncompliance with other medical treatment and regimen (5) Chest pain ICD Code: R07.9 - Chest pain, unspecified Status: Acute (6) Hyponatremia ICD Code: E87.1 - Hypo-osmolality and hyponatremia Status: Acute (7) Alcohol abuse ICD Code: F10.10 - Alcohol abuse, uncomplicated Status: Acute Assessment and Plan Assessment and Plan * Chest pain: Patient will have serial cardiac enzymes and EKGs for ruling out purposes. Her symptoms appear to be atypical. She has had Lexiscan and is nonischemic. * Alcoholism: Patient has been counseled on importance of reducing alcohol intake. We will have CIWA precautions. MVI, THIAMINE, FOLIC ACID * Hypothyroidism: Patient states she has not had medication in months. We will restart her thyroid medication. * Hyponatremia: Sodium has improved.. * Thrombocytopenia: Repeat CBC has platelets mildly increased 47,000 from 42, 000. * Anemia: Repeat CBC in the morning has a hemoglobin now at 8.1. Stools checked and it is Hemoccult negative. We'll repeat another CBC this afternoon, likely a results are related to dilutional effect. She was given IV hydration yesterday. WILL GET ANEMIA WORKUP- HAD BEEN ON IRON IN PAST * TRANSFUSE 2 UNITS * Elevated LFTs: Patient needs to decrease alcohol intake and follow-up with PCP. Discharge Planning PENDING TRANSFUSION HEMATOLOGY CONSULT AND ANEMIA WORKUP TRANSFERRED FROM CHEST PAIN TO OUR SERVICE Problem Qualifiers (1) Chest pain: Qualified Codes: R07.9 - Chest pain, unspecified Maulik Maravilla DO Dec 18, 2016 15:41
[2016-12-18] MEDS ORDERED: LORazepam 2 MG TAB PO PRN (15:45)
[2016-12-18] MEDS ORDERED: FLUMAZENIL 0.5 MG/5 ML VIAL IV PUSH PRN (15:45)
[2016-12-18] MEDS ORDERED: SODIUM CHLORIDE 0.9% FLUSH 10 ML FLUSH IV FLUSH PRN ×2 (15:45)
[2016-12-18] MEDS ORDERED: HALOPERIDOL LACTATE 5 MG/ML AMP IM PRN ×2 (15:45)
[2016-12-18] MEDS ORDERED: ONDANSETRON HCL 4 MG/2 ML VIAL IV PUSH PRN (15:45)
[2016-12-18] MEDS ORDERED: LORazepam 2 MG/ML VIAL IV PUSH PRN ×4 (15:45)
[2016-12-18] MEDS ORDERED: NALOXONE HCL 0.4 MG/ML AMP IV PUSH PRN (15:45)
[2016-12-18] MEDS ORDERED: cloNIDine HCL 0.1 MG TAB PO PRN (15:45)
[2016-12-18] MEDS ORDERED: PROCHLORPERAZINE 25 MG SUPP RECTAL PRN (15:45)
[2016-12-18] MEDS ORDERED: LORazepam 1 MG TAB PO PRN (15:45)
[2016-12-18] MEDS ORDERED: BISACODYL 10 MG SUPP RECTAL PRN (15:45)
[2016-12-18] MEDS ORDERED: SENNOSIDES 8.6 MG TAB PO PRN (15:45)
[2016-12-18] MEDS ORDERED: LACTULOSE SYRUP 20 GM/30 ML CUP PO PRN (15:45)
[2016-12-18] MEDS ORDERED: MAGNESIUM HYDROXIDE SUSP 30 ML CUP PO PRN (15:45)
[2016-12-18] MEDS ORDERED: FUROSEMIDE 20 MG/2 ML VIAL IV PUSH ONE (16:00)
[2016-12-18] MEDS ORDERED: SODIUM CHLOR 0.9% 250 ML INJ 250 ML IV ONE (16:00)
[2016-12-18] MEDS ORDERED: ACETAMINOPHEN 325 MG TAB PO PRN (16:00)
[2016-12-18] MEDS ORDERED: diphenhydrAMINE HCL 25 MG CAP PO PRN (16:00)
[2016-12-18 16:35] LABS: RETIC % 0.5 % (0.4-3.0)
[2016-12-18 16:42] LABS: REVIEW FLAG FINAL
[2016-12-18 16:46] LABS: RHEUMATOID FACTOR TRIGGER LESS THAN 10.0 IU/ML (0.0-14.9)
[2016-12-18 16:47] LABS: LDH SERUM 231 U/L (84-246); MAGNESIUM 1.9 MG/DL (1.5-2.5)
[2016-12-18 17:06] LABS: WESTERGREN SEDIMENTATION RATE 64 mm/hr (0-30)
[2016-12-18 17:12] LABS: FERRITIN 991 NG/ML (8-252); TRANSFERRIN IRON PROFILE 186 MG/DL (200-360)
[2016-12-18] MEDS: MULTIVITAMINS/MINERALS THERAPEUTIC TAB PO SCH (17:32)
[2016-12-18] MEDS: THIAMINE HCL 100 MG TAB PO SCH (17:32)
[2016-12-18] MEDS: FOLIC ACID 1 MG TAB PO SCH (17:32)
[2016-12-18] MEDS: DOCUSATE SODIUM 50 MG/SENNA 8.6 MG TAB PO SCH (21:31)
[2016-12-19] VITALS (12 sets, daily range): BP systolic 98–131; BP diastolic 60–78; PULSE 70–93; RESP 16–20; TEMP 97.9–99.2; O2SAT 96–100
[2016-12-19] MEDS: SODIUM CHLORIDE 0.9% FLUSH 10 ML FLUSH IV FLUSH SCH ×7 (00:55→21:36)
--- NOTE | 2016-12-19 05:44 | MB ---
cc: [facility] DATE OF CONSULTATION December 19, 2016 DATE OF 1965 REASON FOR CONSULTATION Patient with severe anemia. CHIEF COMPLAINT Weakness, right-sided chest pain. HISTORY OF PRESENT ILLNESS This is a 51-year-old female who has a past medical history of alcoholism, hypothyroidism, who presents to the emergency department with complaints of intermittent right-sided chest discomfort. She had recently undergone breast imaging and according to the patient the results were normal. She has recently moved from [place] to the [facility] and has not established a primary care physician. In the emergency department she was found to be significantly anemic with a hemoglobin of 9.1. Her MCV was elevated to 111.8, her platelet count was also low at 42,000. The patient is currently undergoing cardiac workup. A stress test was noted to be nonischemic and negative. Her chest pains have resolved. Her hemoglobin has declined further and today it is at 7.4, MCV remains elevated to 112.9, platelet count is 56,000. Coags show a PT of 10.2, INR of 0.9 and PTT of 25.2. She has elevated liver function tests; AST is 198, ALT is 52 which is consistent with alcohol abuse. Her TSH is very high at 23.6. B12 was normal at 540, folate was also normal. Her ferritin is elevated to 991. Iron studies show almost normal serum iron. Percent saturation is also close to normal. Her creatinine is elevated to 1.14, GFR is 50. She denies any bright red blood per rectum or melena. No nosebleeds, no gum bleeds, no petechiae or bruising. REVIEW OF SYSTEMS A comprehensive 14-point review of systems was completed which is negative except as described in the HPI. PAST MEDICAL HISTORY 1. Hypothyroidism. 2. Alcoholism. PAST SURGICAL HISTORY None. MEDICATIONS 1. Senna. 2. Colace. 3. Benadryl p.r.n. 4. Thiamine. 5. Multivitamins. 6. Zofran p.r.n. 7. Protonix. 8. Clonidine. 9. Flumazenil. 10. Ativan p.r.n. 11. Haloperidol p.r.n. 12. Ambien 5 mg p.o. q.h.s. p.r.n. ALLERGIES PENICILLIN G. FAMILY HISTORY Reviewed and it is noncontributory to this admission. SOCIAL HISTORY She lives with her significant other. She admits to drinking at least a liter of wine on a daily basis. No drug use. No tobacco abuse. PHYSICAL EXAMINATION VITAL SIGNS: Blood pressure is 127/69, pulse in the 70s, temperature is 98.0. GENERAL: A well-developed, well-nourished female in no apparent distress. HEENT: Pupils are equal, round, reactive to light. EOMI. No oral thrush. No oral lesions. NECK: Supple. No JVD, no bruits, no lymphadenopathy. CHEST: Clear to auscultation bilaterally. CARDIAC: S1-S2, regular rate and rhythm. ABDOMEN: Soft, nontender, nondistended. Bowel sounds are present. EXTREMITIES: Without any edema, erythema or cyanosis. SKIN: Without any petechiae, lesion or bruises. NEURO: No focal deficits. PSYCHIATRIC: Mood and affect is appropriate. LABORATORY DATA WBC 4.4, hemoglobin is 7.4, MCV is 112.9, platelet count is 56,000. Serum chemistries show sodium of 133, potassium 4.6, chloride 99, BUN is 20, creatinine 1.14, GFR is 50, phosphorus 3.4, magnesium 1.9, iron is 51, TIBC is 260. Percent saturation is 19.6, B12 540, folate 4.5, CRP is elevated at 0.3. Troponins are negative. A IMAGING STUDIES Myocardial perfusion scan was completed which did not show any evidence of infarct or ischemia and her ejection fraction is normal. Chest x-ray was also reviewed and did not show any acute disease. ASSESSMENT AND PLAN This is a 51-year-old female who has a past medical history of hypothyroidism and alcoholism who presents to the emergency department with chest pain and was found to be severely anemic. 1. Severe anemia with hemoglobin of 7.3. This is macrocytic anemia. The macrocytosis is likely from significant alcohol use. I have reviewed her iron studies which are normal. Ferritin is elevated due to chronic inflammation. B12 and folate levels are also normal. We will obtain hemolysis labs but it does not appear that she is having any hemolysis. Her total bilirubin level was normal at 0.3. Anemia is likely secondary to alcoholism. We need to rule out any underlying GI bleeding, obtain a stool hemoccult. She will need GI evaluation. We should obtain abdominal ultrasound to assess for liver cirrhosis, portal hypertension, etc. She likely has esophageal varices given her extensive history of alcohol abuse. 2. Thrombocytopenia likely from alcohol abuse. Check LDH and haptoglobin. Check daily coagulation studies. 3. Hypothyroidism. Her TSH was quite elevated. This is also contributing to her anemia. She has been started on Synthroid. Thank you for allowing me to participate in the care of this patient. I will continue to follow this patient along. MD PEPE Jang/SHANNON /12:40 AM /5:30 AM
[2016-12-19 08:29] LABS: PROTHROMBIN TIME - PATIENT 10.6 SEC (9.8-11.6)
[2016-12-19 08:32] LABS: AUTOMATED NEUTROPHIL # 3.1 TH/MM3 (1.8-7.7); BASOPHIL % 0.8 % (0.0-2.0); EOSINOPHIL # 0.1 TH/MM3 (0-0.4); EOSINOPHIL % 2.9 % (0.0-4.0); HEMATOCRIT 31.4 % (35.0-46.0); LYMPH % 22.7 % (9.0-44.0); LYMPHOCYTE # 1.2 TH/MM3 (1.0-4.8); MEAN CELL VOLUME 101.2 FL (80.0-100.0); MEAN CORPUSCULAR HEMOGLOBIN 34.9 PG (27.0-34.0); MEAN CORPUSCULAR HGB CONC 34.4 % (32.0-36.0); MONO % 12.7 % (0.0-8.0); NEUT % 60.9 % (16.0-70.0); RED CELL DISTRIBUTION WIDTH 21.5 % (11.6-17.2); WHITE BLOOD COUNT 5.1 TH/MM3 (4.0-11.0)
[2016-12-19 08:35] LABS: ALKALINE PHOSPHATASE 100 U/L (45-117); ALT (GPT) 51 U/L (10-53); ANION GAP 11 MEQ/L (5-15); AST (GOT) 101 U/L (15-37); BICARBONATE 23.3 MEQ/L (21.0-32.0); BLOOD UREA NITROGEN 22 MG/DL (7-18); CHLORIDE 102 MEQ/L (98-107); GLOMERULAR FILTRATION RATE 35 ML/MIN (>89); LDH SERUM 188 U/L (84-246); POTASSIUM 3.7 MEQ/L (3.5-5.1); SODIUM (NA) 136 MEQ/L (136-145); TOTAL BILIRUBIN ADULT 1.1 MG/DL (0.2-1.0)
[2016-12-19] MEDS: DOCUSATE SODIUM 50 MG/SENNA 8.6 MG TAB PO SCH ×2 (08:56→21:00)
[2016-12-19] MEDS: LEVOTHYROXINE SODIUM 75 MCG TAB PO SCH (08:56)
[2016-12-19] MEDS: THIAMINE HCL 100 MG TAB PO SCH (08:56)
[2016-12-19] MEDS: PANTOPRAZOLE SOD 40 MG DELAYED RELEASE TAB PO SCH ×2 (08:56→08:57)
[2016-12-19] MEDS: MULTIVITAMINS/MINERALS THERAPEUTIC TAB PO SCH (08:56)
[2016-12-19] MEDS: FOLIC ACID 1 MG TAB PO SCH (08:56)
[2016-12-19 09:16] LABS: HEMO FLAGS AUTO DIFF; PLATELET COUNT 37 TH/MM3 (150-450)
[2016-12-19 09:17] LABS: PLATELET ESTIMATE SMEAR LOW (NORMAL); PLATELET MORPHOLOGY CLUMPED (NORMAL); SCAN/DIFF AUTO DIFF CONFIRMED
--- NOTE | 2016-12-19 16:39 | HHI.PR ---
Subjective Remarks patient awake and alert no complains history of dzziness in the past and was advised by friend to take OTC iron pills complains of reflux symptoms and occasional difficylty swallowing or pain history of hypothyroidism ran out of meds for 3 months was on 75 mcg daily black stools from iron Objective Vitals Vital Signs Date Time Temp Pulse Resp B/P (MAP) Pulse Ox O2 Delivery O2 Flow Rate FiO2 12/19/16 09:10 96 21 12/19/16 08:00 98.6 90 20 120/69 (86) 99 12/19/16 08:00 80 12/19/16 04:00 99.2 70 18 115/67 (83) 98 12/19/16 03:47 99.2 70 18 115/67 98 12/19/16 01:32 98.0 92 16 98/64 100 12/19/16 01:17 98.2 93 18 112/60 100 12/19/16 00:52 98.2 93 18 112/60 100 12/19/16 00:00 98.5 80 18 126/78 (94) 99 12/18/16 22:46 98.4 71 16 115/61 100 12/18/16 22:30 98.6 81 18 109/64 99 12/18/16 20:38 84 12/18/16 20:00 98.6 81 18 109/64 (79) 99 12/18/16 18:47 98.0 77 20 127/69 (88) 98 12/18/16 17:34 98.1 79 18 99/60 (73) 100 I/O 12/18/16 12/18/16 12/18/16 12/19/16 12/19/16 12/19/16 07:00 15:00 23:00 07:00 15:00 23:00 Intake Total 1190 ml 1808 ml Output Total 400 ml Balance 790 ml 1808 ml Intake Oral 1180 ml 320 ml IV Total 101 ml Packed Cells 1377 ml Blood Product IV Normal Saline Flush 10 ml 10 ml Output Urine Total 400 ml # Voids 3 # Bowel Movements 0 Result Diagram: 12/19/1640 12/19/1640 Imaging Last Impressions Myocardial Perfusion Scan Nuc Med 12/18/16 0000 Signed Impressions: Service Date/Time: Sunday, December 18, 2016 10:44 - CONCLUSION: 1. No scintigraphic evidence of infarct or ischemia. 2. Excellent wall motion throughout the estimated ejection fraction of greater than 70%%. RISK CATEGORY : Low (<1%% Annual Mortality Rate) Daniel Gregg MD Chest X-Ray 12/17/16 0931 Signed Impressions: Service Date/Time: Monday, December 17, 2016 09:35 - CONCLUSION: No acute disease. Jose Yoder MD Objective Remarks awake and alert, oriented x 3 anicteric lungs no rales regular rhtyhm abdomen soft, nontender extremities no edema A/P Problem List: (1) Anemia ICD Code: D64.9 - Anemia, unspecified (2) Hypothyroidism ICD Code: E03.9 - Hypothyroidism, unspecified (3) Depression ICD Code: F32.9 - Major depressive disorder, single episode, unspecified (4) Noncompliance ICD Code: Z91.19 - Patient's noncompliance with other medical treatment and regimen (5) Chest pain ICD Code: R07.9 - Chest pain, unspecified Status: Acute (6) Hyponatremia ICD Code: E87.1 - Hypo-osmolality and hyponatremia Status: Acute (7) Alcohol abuse ICD Code: F10.10 - Alcohol abuse, uncomplicated Status: Acute Assessment and Plan 51 years old female History of chronic alcoholism- very motivated- with alcohol cessation. [facility] protocol acute on chronic Anemia- S/P 2 unit RBC seen by Hematology Gi consult for evaluation- EGD- r/o gastritis/ulcers/varices started on PPI started on folic acid Underlying Alcoholic liver disease - AST elevated Thrombocytopenia- alcohol liver disease hematology ff Chest pain- non caridac- c/o difficulty pain with swallowing r/o esophageal stricture myocardial pefusion study negative for ischemia with excellent EF GI consult for evaluation - EGD/colonosocpy HYpothrydism- TSH 23. restarted on synthroid 75 mcg po daily. recheck as OP. advise compliance patient up and ambulating Problem Qualifiers (1) Chest pain: Qualified Codes: R07.9 - Chest pain, unspecified Danielle Torres MD Dec 19, 2016 16:39
[2016-12-19] MEDS: ZOLPIDEM TARTRATE 5 MG TAB PO PRN (22:15)
--- NOTE | 2016-12-19 23:39 | PD.ONC.PN ---
Subjective Subjective Remarks feels weak being seen by GI no apparent bleeding at this time stools dark Objective Data Date Time Temp Pulse Resp B/P (MAP) Pulse Ox O2 Delivery O2 Flow Rate FiO2 12/19/16 17:00 80 12/19/16 16:00 97.9 86 20 131/68 (89) 99 12/19/16 12:00 98.2 79 20 119/71 (87) 98 12/19/16 09:10 96 21 12/19/16 08:00 98.6 90 20 120/69 (86) 99 12/19/16 08:00 80 12/19/16 04:00 99.2 70 18 115/67 (83) 98 12/19/16 03:47 99.2 70 18 115/67 98 12/19/16 01:32 98.0 92 16 98/64 100 12/19/16 01:17 98.2 93 18 112/60 100 12/19/16 00:52 98.2 93 18 112/60 100 12/19/16 00:00 98.5 80 18 126/78 (94) 99 Result Diagram: 12/19/16 0740 12/19/16 0740 Laboratory Results Laboratory Tests Test 12/19/16 07:40 White Blood Count 5.1 TH/MM3 Red Blood Count 3.10 MIL/MM3 Hemoglobin 10.8 GM/DL Hematocrit 31.4 % Mean Corpuscular Volume 101.2 FL Mean Corpuscular Hemoglobin 34.9 PG Mean Corpuscular Hemoglobin Concent 34.4 % Red Cell Distribution Width 21.5 % Platelet Count 37 TH/MM3 Mean Platelet Volume 9.6 FL Neutrophils (%) (Auto) 60.9 % Lymphocytes (%) (Auto) 22.7 % Monocytes (%) (Auto) 12.7 % Eosinophils (%) (Auto) 2.9 % Basophils (%) (Auto) 0.8 % Neutrophils # (Auto) 3.1 TH/MM3 Lymphocytes # (Auto) 1.2 TH/MM3 Monocytes # (Auto) 0.6 TH/MM3 Eosinophils # (Auto) 0.1 TH/MM3 Basophils # (Auto) 0.0 TH/MM3 CBC Comment AUTO DIFF Differential Comment AUTO DIFF CONFIRMED Platelet Estimate LOW Platelet Morphology Comment CLUMPED Haptoglobin 95 MG/DL Prothrombin Time 10.6 SEC Prothromb Time International Ratio 1.0 RATIO Fibrinogen 244 mg/dL Blood Urea Nitrogen 22 MG/DL Creatinine 1.54 MG/DL Random Glucose 90 MG/DL Total Protein 7.0 GM/DL Albumin 3.0 GM/DL Calcium Level 8.2 MG/DL Alkaline Phosphatase 100 U/L Aspartate Amino Transf (AST/SGOT) 101 U/L Alanine Aminotransferase (ALT/SGPT) 51 U/L Lactate Dehydrogenase 188 U/L Total Bilirubin 1.1 MG/DL Sodium Level 136 MEQ/L Potassium Level 3.7 MEQ/L Chloride Level 102 MEQ/L Carbon Dioxide Level 23.3 MEQ/L Anion Gap 11 MEQ/L Estimat Glomerular Filtration Rate 35 ML/MIN Hepatitis B Surface Antigen NEGATIVE Hepatitis B Core IgM Antibody NEGATIVE Hepatitis C Antibody NEGATIVE Administered Medications Medications (Trade) Dose Ordered Sig/Inderjit Route PRN Reason Start Time Stop Time Status Last Admin Dose Admin Sodium Chloride (NS Flush) 2 ml BID IV FLUSH 12/17/16 21:00 12/19/16 21:36 Levothyroxine Sodium (Synthroid) 75 mcg DAILY PO 12/17/16 14:45 12/19/16 08:56 Pantoprazole Sodium (Protonix) 40 mg DAILY PO 12/17/16 16:45 12/19/16 08:56 Sodium Chloride (NS Flush) 2 ml BID IV FLUSH 12/18/16 21:00 12/19/16 00:55 Folic Acid (Folate) 1 mg DAILY PO 12/18/16 15:45 12/19/16 08:56 Thiamine HCl (Vitamin B1) 100 mg DAILY PO 12/18/16 15:45 12/19/16 08:56 Multivitamins/ Minerals Therapeutic (Theragran M Tab) 1 tab DAILY PO 12/18/16 15:45 12/19/16 08:56 Zolpidem Tartrate (Ambien) 5 mg HS PRN PO INSOMNIA 12/18/16 15:45 12/19/16 22:15 Senna/Docusate Sodium (Lucia-Colace) 1 tab BID PO 12/18/16 21:00 12/18/16 21:31 Objective Remarks GENERAL: nad SKIN: Warm and dry. NECK: Supple, trachea midline. No JVD or lymphadenopathy. LYMPHATIC: No adenopathy. CARDIOVASCULAR: Regular rate and rhythm without murmurs. RESPIRATORY: Breath sounds equal bilaterally. No accessory muscle use. GASTROINTESTINAL: Abdomen soft, non-tender, nondistended. EXTREMITIES: No cyanosis, or edema. Assessment/Plan Problem List: (1) Alcohol abuse ICD Codes: F10.10 - Alcohol abuse, uncomplicated Status: Acute (2) Anemia ICD Codes: D64.9 - Anemia, unspecified (3) Hypothyroidism ICD Codes: E03.9 - Hypothyroidism, unspecified Assessment 51-year-old female who has a past medical history of hypothyroidism and alcoholism who presents to the emergency department with chest pain and was found to be severely anemic. 1. Severe anemia with hemoglobin of 7.3. s/p 2 units of pRBC with improvement in anemia. This is macrocytic anemia. The macrocytosis is likely from significant alcohol use. Anemia is likely secondary to alcoholism. Abdominal U/S. GI evaluation ongoing 2. Thrombocytopenia likely from alcohol abuse. 3. Hypothyroidism. Her TSH was quite elevated. This is also contributing to her anemia. She has been started on Synthroid. Jared Guthrie MD Dec 19, 2016 23:39
[2016-12-20] VITALS (8 sets, daily range): BP systolic 105–138; BP diastolic 61–81; PULSE 67–102; RESP 16–18; TEMP 98.4–99; O2SAT 97–100
[2016-12-20] MEDS: SODIUM CHLORIDE 0.9% FLUSH 10 ML FLUSH IV FLUSH SCH ×6 (07:20→20:54)
[2016-12-20] MEDS: MULTIVITAMINS/MINERALS THERAPEUTIC TAB PO SCH (08:05)
[2016-12-20] MEDS: PANTOPRAZOLE SOD 40 MG DELAYED RELEASE TAB PO SCH (08:05)
[2016-12-20] MEDS: FOLIC ACID 1 MG TAB PO SCH (08:05)
[2016-12-20] MEDS: THIAMINE HCL 100 MG TAB PO SCH (08:05)
[2016-12-20] MEDS: DOCUSATE SODIUM 50 MG/SENNA 8.6 MG TAB PO SCH ×2 (08:05→20:55)
[2016-12-20] MEDS: LEVOTHYROXINE SODIUM 75 MCG TAB PO SCH (08:05)
--- NOTE | 2016-12-20 09:10 | HHI.PR ---
Subjective Remarks feels great po 100% last ight no abdominal nausea, vomiting, no difficulty swallowing but "feels like I have an ulcer" no melena or hematochezia Objective Vitals Vital Signs Date Time Temp Pulse Resp B/P (MAP) Pulse Ox O2 Delivery O2 Flow Rate FiO2 12/20/16 08:01 98.7 88 18 138/81 (100) 98 12/20/16 04:00 98.6 73 16 130/77 (94) 100 12/20/16 00:00 99.0 67 16 130/77 (94) 97 12/19/16 20:00 98.2 84 16 122/68 (86) 98 12/19/16 17:00 80 12/19/16 16:00 97.9 86 20 131/68 (89) 99 12/19/16 12:00 98.2 79 20 119/71 (87) 98 12/19/16 09:10 96 21 I/O 12/19/16 12/19/16 12/19/16 12/20/16 12/20/16 12/20/16 07:00 15:00 23:00 07:00 15:00 23:00 Intake Total 1808 ml 960 ml 480 ml Balance 1808 ml 960 ml 480 ml Intake Oral 320 ml 960 ml 480 ml IV Total 101 ml Packed Cells 1377 ml Blood Product IV Normal Saline Flush 10 ml # Voids 2 3 # Bowel Movements 0 0 Result Diagram: 12/19/16 0740 12/19/16 0740 Imaging Last Impressions Myocardial Perfusion Scan Nuc Med 12/18/16 0000 Signed Impressions: Service Date/Time: Sunday, December 18, 2016 10:44 - CONCLUSION: 1. No scintigraphic evidence of infarct or ischemia. 2. Excellent wall motion throughout the estimated ejection fraction of greater than 70%%. RISK CATEGORY : Low (<1%% Annual Mortality Rate) Daniel Gregg MD Chest X-Ray 12/17/16 0931 Signed Impressions: Service Date/Time: Saturday, December 17, 2016 09:35 - CONCLUSION: No acute disease. Jose Yoder MD Objective Remarks awake and alert, oriented x 3 anicteric no tremors lungs no rales regular rhtyhm abdomen soft, nontender, good bowel sounds extremities no edema A/P Problem List: (1) Anemia ICD Code: D64.9 - Anemia, unspecified (2) Hypothyroidism ICD Code: E03.9 - Hypothyroidism, unspecified (3) Depression ICD Code: F32.9 - Major depressive disorder, single episode, unspecified (4) Noncompliance ICD Code: Z91.19 - Patient's noncompliance with other medical treatment and regimen (5) Chest pain ICD Code: R07.9 - Chest pain, unspecified Status: Acute (6) Hyponatremia ICD Code: E87.1 - Hypo-osmolality and hyponatremia Status: Acute (7) Alcohol abuse ICD Code: F10.10 - Alcohol abuse, uncomplicated Status: Acute Assessment and Plan 51 years old female History of chronic alcoholism- very motivated- with alcohol cessation. CIWA protocol acute on chronic Anemia- macrocytic S/P 2 unit RBC. seen by Hematology Gi consult for evaluation- EGD- r/o gastritis/ulcers/varices started on PPI started on folic acid Liver disease secondary to alcohol- AST elevated High ferritin stores - ? hemochromatosis counselled US of the Liver pending GI consult Thrombocytopenia- likely from alcohol liver disease hematology ff Chest pain- non cardiac- c/o difficulty pain with swallowing r/o esophageal stricture myocardial perfusion study negative for ischemia with excellent EF GI consult for evaluation - EGD/colonoscopy HYpothrydism- TSH 23. restarted on synthroid 75 mcg po daily. recheck as OP. advise compliance Acute on Chronic KI- pre renal in component- per patient good po ff BMP gentle hydration NS 70 cc/hr check US of kidney/bladder patient up and ambulating Problem Qualifiers (1) Chest pain: Qualified Codes: R07.9 - Chest pain, unspecified Danielle Torres MD Dec 20, 2016 09:09
[2016-12-20] MEDS: SODIUM CHLOR 0.9% 1000 ML INJ 1,000 ML IV SCH (09:23)
--- NOTE | 2016-12-20 11:12 | RADRPT ---
EXAM DATE/TIME: 12/20/2016 10:10 [facility] COMPARISON: No previous studies available for comparison. INDICATIONS : Increased BUN/creatinine. MEDICAL HISTORY : Hypothyroidism. Seizures. Chest pain. GERD. Fibromyalgia. Anxiety. SURGICAL HISTORY : Blood transfusions. ENCOUNTER: Initial ACUITY: 1 day PAIN SCORE: 0/10 LOCATION: Bilateral flank MEASUREMENTS: RIGHT KIDNEY: 10.4 x 3.9 x 5.2 cm LEFT KIDNEY: 10.0 x 5.9 x 5.7 cm FINDINGS: RIGHT KIDNEY: Renal cortex is normal in thickness and echotexture. No hydronephrosis, stone, or mass. LEFT KIDNEY: Renal cortex is normal in thickness and echotexture. No hydronephrosis, stone, or mass. BLADDER: Within normal limits given the degree of distension. CONCLUSION: Negative exam. Kidneys are symmetric with preserved cortical thickness. Daniel Gregg MD on December 20, 2016 at 11:09 Board Certified Radiologist. This report was verified electronically.
--- NOTE | 2016-12-20 15:49 | PD.CONS ---
HPI History of Present Illness This is a 51 year old female with hx ETOH abuse, hypothyroid who presented with chest pressure. This chest pressure is constant and started 9 months ago. Certain positions alleviate the discomfort. She admits drinking alot of wine lately. Pain has improved since admission and she is not drinking wine. SHe also noticed she was having alot more heartburn when she was drinking. She drinks a 3L box of wine every 2 - 4 days. She takes prilosec for her heartburn but often forgets when she is drinking wine. Santhosh n/v, abd pain, blood in stool, black tarry stool. Never had colonoscopy or EGD. (Beata Haines) PFSH Past Medical History hypothyroid Past Surgical History none (Beata Haines) Coded Allergies: penicillin G (Unverified Allergy, Unknown, 09/21/16) Family History alcoholism cirrhosis emphysema Social History drinks equivalent of 3-4 bottles every 2-4 days no tobacco or illicit drug use (Beata Haines) Review of Systems Constitutional: DENIES: Fever Eyes: DENIES: Blurred vision Ears, nose, mouth, throat: DENIES: Hearing loss Respiratory: DENIES: Hemoptysis Cardiovascular: DENIES: Palpitations Gastrointestinal: DENIES: Abdominal pain, Black stools, Bloody stools, Constipation, Diarrhea, Nausea, Vomiting Genitourinary: DENIES: Urinary incontinence Musculoskeletal: DENIES: Joint Swelling Integumentary: DENIES: Jaundice Neurologic: DENIES: Abnormal gait Psychiatric: DENIES: Confusion (Beata Haines) GI Exam Vitals I&O Vital Signs Date Time Temp Pulse Resp B/P (MAP) Pulse Ox O2 Delivery O2 Flow Rate FiO2 12/20/16 12:01 98.6 102 18 105/61 (76) 98 12/20/16 08:01 98.7 88 18 138/81 (100) 98 12/20/16 04:00 98.6 73 16 130/77 (94) 100 12/20/16 00:00 99.0 67 16 130/77 (94) 97 12/19/16 20:00 98.2 84 16 122/68 (86) 98 12/19/16 17:00 80 12/19/16 16:00 97.9 86 20 131/68 (89) 99 I/O 12/19/16 12/19/16 12/19/16 12/20/16 12/20/16 12/20/16 07:00 15:00 23:00 07:00 15:00 23:00 Intake Total 1808 ml 960 ml 480 ml Balance 1808 ml 960 ml 480 ml Intake Oral 320 ml 960 ml 480 ml IV Total 101 ml Packed Cells 1377 ml Blood Product IV Normal Saline Flush 10 ml # Voids 2 3 # Bowel Movements 0 0 Imaging Last Impressions Renal Ultrasound 12/20/16 0000 Signed Impressions: Service Date/Time: Tuesday, December 20, 2016 10:10 - CONCLUSION: Negative exam. Kidneys are symmetric with preserved cortical thickness. Daniel Gregg MD Myocardial Perfusion Scan Nuc Med 12/18/16 0000 Signed Impressions: Service Date/Time: Sunday, December 18, 2016 10:44 - CONCLUSION: 1. No scintigraphic evidence of infarct or ischemia. 2. Excellent wall motion throughout the estimated ejection fraction of greater than 70%%. RISK CATEGORY : Low (<1%% Annual Mortality Rate) Daniel Gregg MD Chest X-Ray 12/17/16 0931 Signed Impressions: Service Date/Time: Saturday, December 17, 2016 09:35 - CONCLUSION: No acute disease. Jose Yoder MD Physical Examination HEENT: PERRL; normocephalic; atraumatic; no jaundice. CHEST: CTA CARDIAC: RRR ABDOMEN: Soft, nondistended, nontender; no hepatosplenomegaly; bowel sounds are present in all four quadrants. EXTREMITIES: No clubbing, cyanosis, or edema. SKIN: Normal; no rash; no jaundice. [employer] TECH[employer]ICIAN POULTRY: No focal deficits; alert and oriented times three. (eBata Haines) Assessment and Plan Plan ASSESSMENT - anemia - macrocytic. hematology following. no obvious bleed. s/p 2 x PRBC. never had EGD or colonoscopy - mild elevation LFTs - Tbil 1.1 and AST 101 on admission. hep neg. will get rest of w/u to r/o other cause LFT elevation - thrombocytopenia PLAN - EGD colonoscopy in AM - obtain consent - clears - NPO after midnight - GoLytely - await US liver - liver w/u - cont PPI - further recs to follow This pt seen by myself and DR Parker and this note is written on his behalf (Beata Haines) Physician Comments Patient seen and examined Agree with above Continue with current supportive care Monitor labs EGD with colonoscopy tomorrow (Biju Parker MD) Beata Haines Dec 20, 2016 15:49 Biju Parker MD Dec 20, 2016 23:17
[2016-12-20] MEDS ORDERED: PEG (High)/E-LYTE SOLN 4000 ML BTL PO ONE (16:00)
--- NOTE | 2016-12-20 19:05 | PD.ONC.PN ---
Subjective Subjective Remarks doing okay no bleeding seen by GI no dyspnea eating Objective Data Date Time Temp Pulse Resp B/P (MAP) Pulse Ox O2 Delivery O2 Flow Rate FiO2 12/20/16 17:55 99 21 12/20/16 15:51 98.4 88 16 124/77 (93) 100 12/20/16 12:01 98.6 102 18 105/61 (76) 98 12/20/16 08:01 98.7 88 18 138/81 (100) 98 12/20/16 04:00 98.6 73 16 130/77 (94) 100 12/20/16 00:00 99.0 67 16 130/77 (94) 97 12/19/16 20:00 98.2 84 16 122/68 (86) 98 12/20/16 12/20/16 12/20/16 07:00 15:00 23:00 Intake Total 480 ml 360 ml Balance 480 ml 360 ml Result Diagram: 12/19/1640 12/19/16 0740 Imaging Studies Last 24 hours Impressions Renal Ultrasound 12/20/16 0000 Signed Impressions: Service Date/Time: Tuesday, December 20, 2016 10:10 - CONCLUSION: Negative exam. Kidneys are symmetric with preserved cortical thickness. Daniel Gregg MD Administered Medications Medications (Trade) Dose Ordered Sig/Inderjit Route PRN Reason Start Time Stop Time Status Last Admin Dose Admin Sodium Chloride (NS Flush) 2 ml BID IV FLUSH 12/17/16 21:00 12/20/16 07:20 Levothyroxine Sodium (Synthroid) 75 mcg DAILY PO 12/17/16 14:45 12/20/16 08:05 Pantoprazole Sodium (Protonix) 40 mg DAILY PO 12/17/16 16:45 12/20/16 08:05 Sodium Chloride (NS Flush) 2 ml BID IV FLUSH 12/18/16 21:00 12/19/16 00:55 Folic Acid (Folate) 1 mg DAILY PO 12/18/16 15:45 12/20/16 08:05 Thiamine HCl (Vitamin B1) 100 mg DAILY PO 12/18/16 15:45 12/20/16 08:05 Multivitamins/ Minerals Therapeutic (Theragran M Tab) 1 tab DAILY PO 12/18/16 15:45 12/20/16 08:05 Zolpidem Tartrate (Ambien) 5 mg HS PRN PO INSOMNIA 12/18/16 15:45 12/19/16 22:15 Senna/Docusate Sodium (Lucia-Colace) 1 tab BID PO 12/18/16 21:00 12/20/16 08:05 Sodium Chloride 1,000 ml @ 70 mls/hr [id number] IV 12/20/16 10:00 12/20/16 09:23 Objective Remarks GENERAL: nad SKIN: Warm and dry. HEAD: Normocephalic CARDIOVASCULAR: Regular rate and rhythm without murmurs. RESPIRATORY: Breath sounds equal bilaterally. No accessory muscle use. GASTROINTESTINAL: Abdomen soft, non-tender, nondistended. EXTREMITIES: No cyanosis, or edema. Assessment/Plan Problem List: (1) Alcohol abuse ICD Codes: F10.10 - Alcohol abuse, uncomplicated Status: Acute (2) Anemia ICD Codes: D64.9 - Anemia, unspecified (3) Hypothyroidism ICD Codes: E03.9 - Hypothyroidism, unspecified Assessment 51-year-old female who has a past medical history of hypothyroidism and alcoholism who presents to the emergency department with chest pain and was found to be severely anemic. 1. Severe anemia with hemoglobin of 7.3. s/p 2 units of pRBC with improvement in anemia. This is macrocytic anemia. The macrocytosis is likely from significant alcohol use. Anemia is likely secondary to alcoholism. GI evaluation ongoing 2. Thrombocytopenia likely from alcohol abuse. 3. Hypothyroidism. Her TSH was quite elevated. This is also contributing to her anemia. She has been started on Synthroid. 4. Ferritinemia secondary to inflammation//iron overlaod from alcoholism: check hemochromatosis gene Jared Guthrie MD Dec 20, 2016 19:05
--- NOTE | 2016-12-20 19:20 | RADRPT ---
EXAM DATE/TIME: 12/20/2016 17:47 [facility] COMPARISON: US KIDNEY/RENAL/BLADDER, December 20, 2016, 10:10. INDICATIONS : Increased lab values. MEDICAL HISTORY : Hypothyroidism. Gastroesophageal reflux disease. Seizures. Chest pain. Fibromyalgia. Fractures. Anx iety. SURGICAL HISTORY : None. ENCOUNTER: Initial ACUITY: 2 days PAIN SCORE: 3/10 LOCATION: Bilateral upper quadrant MEASUREMENTS: LIVER: 15.6 cm length COMMON DUCT: 9 mm RIGHT KIDNEY: 10.3 x 4.6 x 4.1 cm SPLEEN: 8.9 cm length FINDINGS: LIVER: Normal echotexture without focal lesion or ductal dilatation. COMMON DUCT: Common bile duct is enlarged at 9 mm. GALLBLADDER: There is a 0.9 x 0.5 x 0.4 cm echogenic focus within the gallbladder. On most images, this does not s hadow. There is an image, image #30, where it does shadow. The technologist reports this is nonmobile . PANCREAS: The visualized portions are within normal limits. RIGHT KIDNEY: No hydronephrosis, stone or mass. SPLEEN: No focal lesion. CONCLUSION: 0.9 cm echogenic focus within the gallbladder likely related to a gallstone although this only interm ittently shadows and the technologist reports it is nonmobile. Typically, gallbladder polyps which ca n present as echogenic foci within the gallbladder are usually not this large. The common bile duct i s mildly dilated at 9 mm. Jeferson Gold MD on December 20, 2016 at 19:14 Board Certified Radiologist. This report was verified electronically.
[2016-12-20 19:48] LABS: ALKALINE PHOSPHATASE 92 U/L (45-117); ALT (GPT) 46 U/L (10-53); ANION GAP 8 MEQ/L (5-15); AST (GOT) 74 U/L (15-37); BLOOD UREA NITROGEN 33 MG/DL (7-18); CHLORIDE 105 MEQ/L (98-107); GLOMERULAR FILTRATION RATE 34 ML/MIN (>89); SODIUM (NA) 139 MEQ/L (136-145); TOTAL BILIRUBIN ADULT 0.3 MG/DL (0.2-1.0)
[2016-12-21] VITALS: BP 142/78; PULSE 73; RESP 18; TEMP 97.7; O2SAT 100
[2016-12-21] MEDS: ZOLPIDEM TARTRATE 5 MG TAB PO PRN (01:04)
[2016-12-21] MEDS: SODIUM CHLOR 0.9% 1000 ML INJ 1,000 ML IV SCH ×2 (02:46→08:17)
[2016-12-21 04:00] VITALS: BP 139/79; PULSE 86; RESP 18; TEMP 98.1; O2SAT 100
[2016-12-21] MEDS ORDERED: POVIDONE IODINE 5% (ANTISEPSIS KIT) 4 APPLICATIONS EACH NARE PRN (04:00)
[2016-12-21] MEDS ORDERED: INSULIN HUMAN REGULAR 1,000 UNITS/10 ML VIAL SQ PRN (04:00)
[2016-12-21] MEDS ORDERED: METOPROLOL TARTRATE 25 MG TAB PO PRN (04:00)
[2016-12-21] MEDS ORDERED: LACTATED RINGER'S 1000 ML IV PRN (04:00)
[2016-12-21] MEDS ORDERED: CHLORHEXIDINE GLUCONATE 2 % 1 PACK (2 CLOTHS) TOPICAL PRN (04:00)
[2016-12-21] MEDS ORDERED: SODIUM CHLORID 0.9% 500 ML IV PRN (04:00)
[2016-12-21] MEDS: SODIUM CHLORIDE 0.9% FLUSH 10 ML FLUSH IV FLUSH SCH ×3 (07:41)
[2016-12-21 08:01] VITALS: BP 145/75; PULSE 74; RESP 16; TEMP 98.9; O2SAT 99
[2016-12-21] MEDS: DOCUSATE SODIUM 50 MG/SENNA 8.6 MG TAB PO SCH (08:17)
[2016-12-21] MEDS: PANTOPRAZOLE SOD 40 MG DELAYED RELEASE TAB PO SCH (08:17)
[2016-12-21] MEDS: LEVOTHYROXINE SODIUM 75 MCG TAB PO SCH (08:17)
[2016-12-21] MEDS: THIAMINE HCL 100 MG TAB PO SCH (08:17)
[2016-12-21] MEDS: FOLIC ACID 1 MG TAB PO SCH (08:17)
[2016-12-21] MEDS: MULTIVITAMINS/MINERALS THERAPEUTIC TAB PO SCH (08:17)
--- NOTE | 2016-12-21 09:41 | HHI.PR ---
Subjective Remarks feels great got prep for colonoscopy- + BMs no nausea or vomiting Objective Vitals Vital Signs Date Time Temp Pulse Resp B/P (MAP) Pulse Ox O2 Delivery O2 Flow Rate FiO2 12/21/16 08:01 98.9 74 16 145/75 (98) 99 12/21/16 04:00 98.1 86 18 139/79 (99) 100 12/21/16 00:00 97.7 73 18 142/78 (99) 100 12/20/16 20:00 82 12/20/16 20:00 98.7 82 16 128/81 (97) 97 12/20/16 17:55 99 21 12/20/16 15:51 98.4 88 16 124/77 (93) 100 12/20/16 12:01 98.6 102 18 105/61 (76) 98 I/O 12/20/16 12/20/16 12/20/16 12/21/16 12/21/16 12/21/16 07:00 15:00 23:00 07:00 15:00 23:00 Intake Total 480 ml 360 ml 1221 ml Balance 480 ml 360 ml 1221 ml Intake Oral 480 ml 360 ml IV Total 1221 ml # Voids 3 5 # Bowel Movements 0 2 Result Diagram: 12/19/16 0740 12/20/16 1836 Imaging Last Impressions Renal Ultrasound 12/20/16 0000 Signed Impressions: Service Date/Time: Tuesday, December 20, 2016 10:10 - CONCLUSION: Negative exam. Kidneys are symmetric with preserved cortical thickness. Daniel Gregg MD Liver Ultrasound 12/20/16 0000 Signed Impressions: Service Date/Time: Tuesday, December 20, 2016 17:47 - CONCLUSION: 0.9 cm echogenic focus within the gallbladder likely related to a gallstone although this only intermittently shadows and the technologist reports it is nonmobile. Typically, gallbladder polyps which can present as echogenic foci within the gallbladder are usually not this large. The common bile duct is mildly dilated at 9 mm. Jeferson Gold MD Myocardial Perfusion Scan Nuc Med 12/18/16 0000 Signed Impressions: Service Date/Time: Sunday, December 18, 2016 10:44 - CONCLUSION: 1. No scintigraphic evidence of infarct or ischemia. 2. Excellent wall motion throughout the estimated ejection fraction of greater than 70%%. RISK CATEGORY : Low (<1%% Annual Mortality Rate) Daniel Gregg MD Chest X-Ray 12/17/16 0931 Signed Impressions: Service Date/Time: Saturday, December 17, 2016 09:35 - CONCLUSION: No acute disease. Jose Yoder MD Objective Remarks awake and alert, oriented x 3 anicteric no tremors lungs no rales regular rhythm abdomen soft, nontender, good bowel sounds extremities no edema A/P Problem List: (1) Anemia ICD Code: D64.9 - Anemia, unspecified (2) Hypothyroidism ICD Code: E03.9 - Hypothyroidism, unspecified (3) Depression ICD Code: F32.9 - Major depressive disorder, single episode, unspecified (4) Noncompliance ICD Code: Z91.19 - Patient's noncompliance with other medical treatment and regimen (5) Chest pain ICD Code: R07.9 - Chest pain, unspecified Status: Acute (6) Hyponatremia ICD Code: E87.1 - Hypo-osmolality and hyponatremia Status: Acute (7) Alcohol abuse ICD Code: F10.10 - Alcohol abuse, uncomplicated Status: Acute Assessment and Plan 51 years old female History of chronic alcoholism- very motivated- with alcohol cessation. [facility] protocol acute on chronic Anemia- macrocytic S/P 2 unit RBC. seen by Hematology Gi consult for evaluation- EGD- r/o gastritis/ulcers/varices started on PPI started on folic acid Liver disease secondary to alcohol- AST elevated, alkaline phos- normal US- shows gallstone vs polyp- patient asymtpomatic- no rught upper quadrant pain, no obstruction. ductal dilation High ferritin stores - ? hemochromatosis counselled GI ff Thrombocytopenia- likely from alcohol liver disease hematology ff Chest pain- non cardiac- Dysphagia- c/o difficulty pain with swallowing r/o esophageal stricture myocardial perfusion study negative for ischemia with excellent EF for EGD/colonoscopy today HYpothrydism- TSH 23. restarted on synthroid 75 mcg po daily. recheck as OP. advise compliance Acute on Chronic KI- pre renal in component- per patient good po stable check US of kidney/bladder- unremarkable patient up and ambulating Dc today if unremakable EGD/colonscopy CM assistance- no insurance back from EGD/colonosocpy - d/w her and results refused small bowel series DC home today on PPI and synthroid Problem Qualifiers (1) Chest pain: Qualified Codes: R07.9 - Chest pain, unspecified Danielle Torres MD Dec 21, 2016 09:41
[2016-12-21 10:15] LABS: TRANSFERRIN IRON PROFILE 208 MG/DL (200-360)
--- NOTE | 2016-12-21 13:47 | PD.PROCEDR ---
GI Procedure REFERRING PHYSICIAN ABILIO PROCEDURE PERFORMED EGD with biopsy followed by colonoscopy INDICATION FOR PROCEDURE Anemia PROCEDURE: The procedure, risks and benefits were discussed with Ms. Mcrae and informed consent was obtained. Anesthesia sedated her with Diprivan. She was placed in the left lateral decubitus position. EGD: The Pentax videoscope was introduced through the oropharynx and advanced to the second portion of the duodenum under direct visualization. Retroflexion was performed in the stomach. FINDINGS: Esophagus this appeared to be somewhat erythemic in the distal portion suggestive of reflux esophagitis this would be mild barely class a this was biopsied otherwise the rest of this esophagus was unremarkable Stomach there was a small hiatal hernia there was punctate erythema in the antrum but no ulcerations or erosions no blood or bleeding the rest of the stomach was unremarkable antral biopsies were taken for further evaluation Duodenum this was normal and random biopsies were taken for further evaluation Colonoscopy: The Pentax videoscope was introduced through the rectum and advanced to cecum where the ileocecal valve and appendiceal orifice were identified. Retroflexion was performed in the rectum. Colonic prep was fair FINDINGS: Colonic withdrawal time greater than 6 minutes as the scope was slowly withdrawn colonic mucosa was carefully inspected this was noted to be unremarkable and within normal limits all the way through so as retroflexion and rectal examination ESTIMATED BLOOD LOSS: None SPECIMENS REMOVED: Esophageal, gastric, duodenal samples COMPLICATIONS: None IMPRESSION: reflux esophagitis Gastritis Normal colon PLAN: Await biopsies Recommend PPI Monitor labs We will proceed with a small bowel follow-through to complete an evaluation for anemia Colonoscopy in 5 years Biju Parker MD Dec 21, 2016 13:47
[2016-12-21] MEDS ORDERED: MAGNESIUM CITRATE SOLN 300 ML BTL PO ONE ×2 (15:00→18:00)
[2016-12-21 15:12] VITALS: BP 159/73; PULSE 73; RESP 16; TEMP 99; O2SAT 96
[2016-12-21] MEDS ORDERED: LEVO75TA3 PO (15:56)
[2016-12-21] MEDS ORDERED: PANT40TA3 PO (15:56)
[2016-12-21] MEDS ORDERED: BISACODYL EC 5 MG TABEC PO SCH (18:00)
== END 2016-12-21 17:40 | disposition home or self-care (01) | DRG 812 ==
LOC: NEPE 09:05 → NEDA 14:45 → NEPGCP 16:23 → OBSVTOIN 12-18 15:47 → N04B 12-18 17:49
PROVIDERS: ADMIT Family Medicine; ATTEND Family Medicine
PROC: 30233N1 Transfusion of Nonautologous Red Blood Cells into Peripheral Vein, Percutaneous Approach (ICD-10-PCS; principal; 2016-12-18)
PROC: 0DB68ZX Excision of Stomach, Via Natural or Artificial Opening Endoscopic, Diagnostic (ICD-10-PCS; 2016-12-21)
PROC: 0DB38ZX Excision of Lower Esophagus, Via Natural or Artificial Opening Endoscopic, Diagnostic (ICD-10-PCS; 2016-12-21)
PROC: 0DJD8ZZ Inspection of Lower Intestinal Tract, Via Natural or Artificial Opening Endoscopic (ICD-10-PCS; 2016-12-21)
PROC: 0DB98ZX Excision of Duodenum, Via Natural or Artificial Opening Endoscopic, Diagnostic (ICD-10-PCS; 2016-12-21 12:50)
DX: D53.9 Nutritional anemia, unspecified (principal); D69.59 Other secondary thrombocytopenia; E87.1 Hypo-osmolality and hyponatremia; K70.9 Alcoholic liver disease, unspecified; E03.9 Hypothyroidism, unspecified; F10.20 Alcohol dependence, uncomplicated; K21.0 Gastro-esophageal reflux disease with esophagitis; K44.9 Diaphragmatic hernia without obstruction or gangrene; K29.70 Gastritis, unspecified, without bleeding; R07.89 Other chest pain; F32.9 Major depressive disorder, single episode, unspecified; Z91.19 Patient's noncompliance with other medical treatment and regimen; Y90.8 Blood alcohol level of 240 mg/100 ml or more
CPT/HCPCS: 36430; 71010; 76705; 76775; 78452; 80048; 80053; 80307; 82103; 82105; 82390; 82550; 82607; 82668; 82728; 82746; 82747; 82948; 83010; 83520; 83540; 83550; 83615; 83735; 84100; 84443; 84484; 85007; 85025; 85027; 85044; 85384; 85610; 85652; 85730; 86038; 86140; 86255; 86430; 86705; 86803; 86850; 86880; 86900; 86901; 86920; 87340; 88305; 88312; 93005; 93017; 96365; A9502; G0378; J1940; J2405; J2785; J3411; J7030; J7050; J7120; P9016